=== PATIENT | male | born 1965 | race African-American/Black ===

== ENCOUNTER 2017-12-18 08:05 | Emergency (ER) | payer BC ==
[~2017-12-18] VITALS: Ht 170.2 cm; Wt 89.0 kg
[2017-12-18] MEDS ORDERED: SODIUM CHLORIDE 0.9% 1,000 ML IV ONE (08:34)
[2017-12-18] MEDS ORDERED: ASPIRIN 81MG TABLET PO ONE (08:45)
[2017-12-18 08:56] LABS: BASOPHILS % 0.7 % (0.0-2.0); EOSINOPHILS % 6.9 % (0.0-5.0); HEMATOCRIT. 39.9 % (42.0-52.0); HEMOGLOBIN. 13.1 g/dL (14.0-18.0); LYMPHOCYTES % 35.7 % (20.0-50.0); MEAN CORPUSCULAR HEMOGLOBIN 28.8 pg (28.0-32.0); MEAN CORPUSCULAR VOLUME 87.9 fL (80.0-94.0); MEAN PLATELET VOLUME 8.1 fl (7.4-10.4); MONOCYTES % 10.5 % (2.0-8.0); NEUTROPHILS % 46.2 % (40.0-76.0); PLATELET 249 x1000/uL (130-400); RED BLOOD CELL COUNT 4.54 mill/uL (4.7-6.1); RED CELL DISTRIBUTION WIDTH 13.3 % (11.6-14.6)
[2017-12-18 09:02] LABS: CHLORIDE 112 mEq/L (98-107)
[2017-12-18 09:05] LABS: INR 1.1; PARTIAL THROMBOPLASTIN TIME 23.6 sec (23.4-31.0); PROTHROMBIN TIME 11.4 sec (9.4-11.6)
[2017-12-18 16:06] VITALS: BP 139/91
== END 2017-12-18 16:40 | disposition short-term general hospital (02) ==
LOC: ER 08:05
DX: R55 Syncope and collapse (principal); R11.10 Vomiting, unspecified; R42 Dizziness and giddiness; R20.0 Anesthesia of skin; R53.1 Weakness
CPT/HCPCS: 36415; 70450; 71045; 80053; 82962; 83880; 84484; 85025; 85610; 85730; 93005; 96360; 96361; 99285; J7030